=== PATIENT | male | born 2000 | race Caucasian/White ===

== ENCOUNTER 2020-06-14 15:06 | Emergency (ER) | payer OTHER ==
[~2020-06-14] VITALS: Ht 188 cm; Wt 90.9 kg
--- NOTE | 2020-06-14 16:06 | RAD ---
EXAM: PA left hand, oblique and lateral views left ring finger DATE: 06/14/2020 3:45 PM INDICATION: Reason: 4th digit laceration on left hand / Spl. Instructions: / History: COMPARISON: No Prior FINDINGS: Soft tissue swelling and irregularity at the distal aspect of the left ring finger consistent with provided history of laceration. No definite retained radiopaque foreign body. No acute osseous abnormality. No acute fracture or dislocation. Mild hyperextension at the PIP joint may be physiologic although underlying tendinous/soft tissue injury cannot be excluded and can be assessed by clinical examination. IMPRESSION: 1. Soft tissue swelling/irregularity distal left ring finger consistent with provided history of laceration. 2. No evidence of acute fracture or dislocation. 3. Hyperextension PIP joint left ring finger, possibly physiologic although underlying soft tissue/tendinous injury is not excluded and can be correlated with examination. Electronically signed by: Christiano De Souza MD (06/14/2020 4:03 PM) [facility]
[2020-06-14] MEDS ORDERED: LIDOCAINE 1% PF 2 ML VIAL. INJ ONE (16:45)
[2020-06-14] MEDS ORDERED: NEOMY/BACITR/POLYMYXIN OINT PACKET. TP ONE (16:45)
[2020-06-14] MEDS ORDERED: DIPH,PERTUSS(ACELL),TET VAC/PF 0.5 ML SYRINGE. VAX IM ONE (16:45)
--- NOTE | 2020-06-14 16:45 | PHYS DOC ---
Past Medical History Past Medical History: No Pertinent History (ASTON CROWDER APRN) Past Surgical History: No Surgical History (ASTON CROWDER APRN) Smoking Status: Current Every Day Smoker Alcohol Use: Occasionally (ASTON CROWDER APRN) General Adult EDM: Chief Complaint: LACERATION/AVULSION HPI: HPI: Patient is a 19 year old male who presents to the emergency department with complaints of a laceration to the palmar aspect of his of his left fourth digit on the medial side. Patient states that he was using a knife to cut tomatoes or working at [employer] today when he accidentally cut his finger. He denies any numbness, tingling, or decreased range of motion of the affected digit. He currently denies any pain. Patient is unsure when his last tetanus shot was. (ASTON CROWDER APRN) Review of Systems: Review of Systems: Constitutional: Denies fever or chills. [] Eyes: Denies change in visual acuity. [] HENT: Denies nasal congestion or sore throat. [] Respiratory: Denies cough or shortness of breath. [] Cardiovascular: Denies chest pain or edema. [] GI: Denies abdominal pain, nausea, vomiting, bloody stools or diarrhea. [] : Denies dysuria. [] Musculoskeletal: Denies back pain or joint pain. [] Integument: Denies rash. [] Neurologic: Denies headache, focal weakness or sensory changes. [] Endocrine: Denies polyuria or polydipsia. [] Lymphatic: Denies swollen glands. [] Psychiatric: Denies depression or anxiety. [] (ASTON CROWDER APRN) Heart Score: Risk Factors: Risk Factors: DM, Current or recent (<one month) smoker, HTN, HLP, family history of CAD, obesity. Risk Scores: Score 0 - 3: 2.5% MACE over next 6 weeks - Discharge Home Score 4 - 6: 20.3% MACE over next 6 weeks - Admit for Clinical Observation Score 7 - 10: 72.7% MACE over next 6 weeks - Early Invasive Strategies (ASTON CROWDER APRN) Allergies: Allergies: Allergies Coded Allergies Type Severity Reaction Last Updated Verified No Known Drug Allergies 06/14/20 No (ASTON CROWDER APRN) Physical Exam: PE: Constitutional: Well developed, well nourished, no acute distress, non-toxic appearance. [] HENT: Normocephalic, atraumatic, bilateral external ears normal, nose normal. [] Eyes: PERRLA, EOMI, conjunctiva normal, no discharge. [] Neck: Normal range of motion, no stridor. [] Cardiovascular:Heart rate regular rhythm Lungs & Thorax: Respirations even and unlabored, no retractions, no respiratory distress Skin: Warm, dry, no erythema, no rash; 2 cm laceration to the palmar aspect of the left fourth digit distal to the DIP no visible foreign body [] Extremities: Fourth digit of left hand: No bony tenderness, full extension and flexion, no cyanosis, ROM intact Neurologic: Alert and oriented X 3, no focal deficits noted. [] Psychologic: Affect normal, judgement normal, mood normal. [] (ASTON CROWDER APRN) Current Patient Data: Vital Signs: Vital Signs Date Time Temp Pulse Resp B/P (MAP) Pulse Ox O2 Delivery O2 Flow Rate FiO2 06/14/20 15:35 98.1 95 16 163/93 (116) 99 Room Air 98.1 (ASTON CROWDER APRN) EKG: EKG: [] (ASTON CROWDER APRN) Radiology/Procedures: Radiology/Procedures: PROCEDURE: FINGER(S) LEFT EXAM: PA left hand, oblique and lateral views left ring finger DATE: 06/14/2020 3:45 PM INDICATION: Reason: 4th digit laceration on left hand / Spl. Instructions: / History: COMPARISON: No Prior FINDINGS: Soft tissue swelling and irregularity at the distal aspect of the left ring finger consistent with provided history of laceration. No definite retained radiopaque foreign body. No acute osseous abnormality. No acute fracture or dislocation. Mild hyperextension at the PIP joint may be physiologic although underlying tendinous/soft tissue injury cannot be excluded and can be assessed by clinical examination. IMPRESSION: 1. Soft tissue swelling/irregularity distal left ring finger consistent with provided history of laceration. 2. No evidence of acute fracture or dislocation. 3. Hyperextension PIP joint left ring finger, possibly physiologic although underlying soft tissue/tendinous injury is not excluded and can be correlated with examination. [] Laceration Repair by me: Anesthesia: 1% lidocaine locally Location: Distal palmar aspect of the left fourth digit Tendon/Joint/Nerves: No injury Foreign body: None detected after copious irrigation and exploration with 250 mL of NS and chlorhexidine scrub Technique: 6 simple Interrupted Sutures with 4-0 Ethilon; 0.5 cm area of the laceration was closed with Dermabond Complexity: No subcutaneous sutures/mucosal repair/edge excision Post Closure Length: 2.5 cm Patient's bleeding was easily controlled in the department and there is no indication of anemia. No evidence of compartment syndrome, neurologic injury, vascular injury, open joint, tendon laceration, or foreign body. Patient is appropriate for outpatient follow up. (ASTON CROWDER APRN) Course & Med Decision Making: Course & Med Decision Making Pertinent Labs and Imaging studies reviewed. (See chart for details) [] (ASTON CROWDER APRN) Course & Med Decision Making I have personally interviewed and examined patient. All charts, labs and imaging studies were reviewed. I agreed with the PA/BEADING MACHINE OPERATOR's findings, exam and plan of care Laceration of the tip of the finger. Laceration approximates well. No signs of active bleeding (SILVIA KAMARA MD) Dragon Disclaimer: Dragon Disclaimer: This electronic medical record was generated, in whole or in part, using a voice recognition dictation system. (ASTON CROWDER APRN) Departure Departure Impression: Primary Impression: Laceration of finger of left hand without foreign body without damage to nail Qualified Codes: S61.215A - Laceration without foreign body of left ring finger without damage to nail, initial encounter Disposition: 01 HOME, SELF-CARE Condition: STABLE Patient Instructions: Fingertip Laceration Additional Instructions: Fill the prescription and use it as directed. Keep the area clean and dry. You may take Tylenol or ibuprofen as needed for pain. Keep the dressing that was placed today on for 24 hours then change the dressing twice a day and apply antibiotic ointment to the area. Follow-up with your primary care doctor, or return to the emergency room in 10-14 days to have the sutures removed, sooner if you develop signs of infection including: redness, warmth, drainage, or a fever. Scripts Cephalexin (KEFLEX) 500 Mg Capsule 500 MG PO QID for 7 Days, #28 CAP 0 Refills Prov: ASTON CROWDER APRN 06/14/20 Justicifation of Admission Dx: Justifications for Admission: Justification of Admission Dx: N/A (ASTON CROWDER APRN) ASTON CROWDER APRN Jun 14, 2020 16:45 SILVIA KAMARA MD Jun 14, 2020 20:31
[2020-06-14 17:00] VITALS: BP 130/83
[2020-06-14] MEDS ORDERED: CEPH-264 PO (18:36)
== END 2020-06-14 18:46 | disposition home or self-care (01) ==
LOC: ER 15:06
DX: S61.215A Laceration without foreign body of left ring finger without damage to nail, initial encounter (principal); F17.200 Nicotine dependence, unspecified, uncomplicated; W26.0XXA Contact with knife, initial encounter; Y93.89 Activity, other specified; Y92.69 Other specified industrial and construction area as the place of occurrence of the external cause; Y99.0 Civilian activity done for income or pay
CPT/HCPCS: 12001; 73140; 90471; 90715; 99283; J3490; 12002; 99284